=== PATIENT | male | born 1985 | race Asian ===

== ENCOUNTER 2017-10-09 03:21 | Emergency (ER) | payer OTHER ==
[2017-10-09] MEDS ORDERED: IBUPROFEN 800 MG TAB PO ONE ×2 (03:34)
--- NOTE | 2017-10-09 03:38 | EDPHY ---
H & P Stated Complaint: L knee pain x1 hour ago Time Seen by Provider: 10/09/17 03:35 HPI/ROS: HPI CHIEF COMPLAINT: Left knee pain. HISTORY OF PRESENT ILLNESS: Patient very pleasant 32-year-old male, he presents emergency room with left lateral knee pain. Atraumatic. He states he woke up approximately an hour ago with left lateral knee pain. Patient does not remember any injury. He has pain to left lateral joint line of his left knee. Denies any significant swelling. Denies crepitus. Denies trauma. Does state he does jujitsu. He last did this a week ago. Does not remember injury. He denies any calf pain or upper leg pain. Denies abnormal swelling or numbness or tingling. Denies chest pain or shortness of breath or fever. Pain is located left lateral knee. Currently 09/04. This started briefly ago he did not take any anti-inflammatory pain medicine. Patient did not ice it. Past Medical History: Denies medical history Past Surgical History: Denies surgical history Social History: Denies daily use of drugs alcohol tobacco. 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 Family History: Noncontributory ROS REVIEW OF SYSTEMS: A comprehensive 10 point review of systems is otherwise negative aside from elements mentioned in the history of present illness. Exam Constitutional appears well nontoxic no acute distress, triage nursing summary reviewed, vital signs reviewed, awake/alert. Eyes normal conjunctivae and sclera, EOMI, PERRLA. HENT normal inspection, atraumatic, moist mucus membranes, no epistaxis, neck supple/ no meningismus, no raccoon eyes. Respiratory clear to auscultation bilaterally, normal breath sounds, no respiratory distress, no wheezing. Cardiovascular rate normal, regular rhythm, no murmur, no edema, distal pulses normal. Gastrointestinal soft, non-tender, no rebound, no guarding, normal bowel sounds, no distension, no pulsatile mass. Genitourinary no CVA tenderness. Musculoskeletal left lower extremity: Tender palpation over the left lateral knee joint line, no crepitus, negative anterior-posterior drawer sign. No significant swelling on exam. No bruising or clicking or ecchymosis or significant swelling. Full range of motion. Distally neurovascular intact good distal pulse. Normal sensation. no midline vertebral tenderness, full range of motion, no calf swelling, no tenderness of extremities, no meningismus , good pulses, neurovascularly intact. Skin pink, warm, & dry, no rash, skin atraumatic. Neurologic awake, alert and oriented x 3, AAOx3, moves all 4 extremities equally, motor intact, sensory intact, CN II-XII intact, normal cerebellar, normal vision, normal speech. Psychiatric normal mood/affect. Heme/Lymph/Immune no lymphadenopathy. Differential Diagnosis: But is not limited to in a particular order knee sprain , knee contusion, ligamentous injury, meniscal injury, tendinitis, fracture, malalignment. Medical Decision Making: Plan for this patient x-ray left knee. Ibuprofen 800 mg. Will most likely placed in knee immobilizer for comfort. Recommend ice, elevation, anti-inflammatory pain medicine. Recommend following up with Orthopedics as needed. Re-evaluation: X-ray of the knee reviewed. No evidence of acute fracture malalignment. Patient be placed in knee immobilizer. Recommend return precautions. Additionally recommend following up with Orthopedics. Recommend anti-inflammatory pain medicine. Ice, elevation, rest. Follow up with Orthopedics. He understands. Source: Patient - Personal History Current Tetanus/Diphtheria Vaccine: Yes - Medical/Surgical History Hx Asthma: No Hx Chronic Respiratory Disease: No Hx Diabetes: No Hx Cardiac Disease: No Hx Renal Disease: No Hx Cirrhosis: No Hx Alcoholism: No Hx HIV/AIDS: No Hx Splenectomy or Spleen Trauma: No Other PMH: denies - Social History Smoking Status: Current some day smoker Constitutional: Initial Vital Signs Temperature (C) 36.5 C 10/09/17 03:23 Heart Rate 82 10/09/17 03:23 Respiratory Rate 18 10/09/17 03:23 Blood Pressure 162/107 H 10/09/17 03:23 O2 Sat (%) 96 10/09/17 03:23 O2 Delivery Mode Room Air Allergies/Adverse Reactions: Penicillins Allergy (Verified 10/09/17 03:25) Home Medications: Medication Instructions Recorded Ibuprofen [Motrin (*)] 800 mg PO Q6-8PRN #10 tab 10/09/17 Departure - Departure Disposition: Home, Routine, Self-Care Clinical Impression: Knee sprain Qualifiers: Encounter type: initial encounter Involved ligament of knee: unspecified ligament Laterality: left Qualified Code(s): S83.92XA - Sprain of unspecified site of left knee, initial encounter Condition: Good Instructions: Knee Pain (ED) Additional Instructions: 1. Recommend you ice her knee. 2. Take anti-inflammatory pain medicine for pain control. Tylenol Motrin. 3. Knee immobilizer for comfort. 4. If you have continued pain I would follow up with Orthopedics. Referrals: Thelma Stone MD [Primary Care Provider] - As per Instructions Earl Denson MD [Medical Doctor] - As per Instructions Prescriptions: Ibuprofen [Motrin (*)] 800 mg PO Q6-8PRN #10 tab
[2017-10-09 04:37] VITALS: BP 129/77
== END 2017-10-09 04:37 | disposition home or self-care (01) ==
DX: S83.92XA Sprain of unspecified site of left knee, initial encounter (principal); F17.200 Nicotine dependence, unspecified, uncomplicated; X58.XXXA Exposure to other specified factors, initial encounter